=== PATIENT | male | born 1960 | race Caucasian/White ===

== ENCOUNTER → 2023-07-19 08:33 | Outpatient (REF) | payer BC, SELFPAY | LOC: HWRCS 08:33 | PROVIDERS: ATTENDING PHYSICIAN Family Medicine | DX: I77.810 Thoracic aortic ectasia (principal) | CPT/HCPCS: 93306 ==

== ENCOUNTER → 2023-12-29 10:01 | Outpatient (REF) | payer MEDICARE, SELFPAY | LOC: REG 10:01 | PROVIDERS: ATTENDING PHYSICIAN Family Medicine | DX: R06.2 Wheezing (principal) | CPT/HCPCS: 71046 ==

== ENCOUNTER → 2024-03-12 10:03 | Outpatient (REF) | payer MEDICARE, SELFPAY | LOC: RAD 10:03 | PROVIDERS: ATTENDING PHYSICIAN Internal Medicine Cardiovascular Disease; FAMILY PHYSICIAN Family Medicine | DX: R07.89 Other chest pain (principal); Z01.810 Encounter for preprocedural cardiovascular examination; Z82.49 Family history of ischemic heart disease and other diseases of the circulatory system | CPT/HCPCS: 75574; Q9967 ==

== ENCOUNTER 2024-07-08 15:26 | Emergency (ER) | payer MEDICARE, SELFPAY ==
[2024-07-08 15:31] VITALS: BP 137/96
[2024-07-08] MEDS: OMNIPAQUE 50 ML PO (15:52)
[2024-07-08 16:18] LABS: % Basophils 0.7 % (0-2); % Eosinophils 1.5 % (0-6); % Immature Granulocytes 0.2 % (0-0.5); % Lymphocytes 23.3 % (20.5-51.1); % Monocytes 8.9 % (1.7-9.3); % Neutrophils 65.4 % (42.2-75.2); Absolute Eosinophils 0.1 10^3/uL (0-0.7); Absolute Lymphocytes 1.3 10^3/uL (1.2-3.4); Absolute Monocytes 0.5 10^3/uL (0.1-0.6); Absolute Neutrophils 3.6 10^3/uL (1.4-6.5); Hematocrit 44.9 % (39.0-52.0); Hemoglobin 15.4 g/dL (13.0-18.0); Mean Corp Hgb Conc. 34.3 g/dL (33.0-37.0); Mean Corpuscular Hgb 29.8 pg (27.0-31.0); Mean Platelet Volume 9.8 fL (7.4-10.4); Nucleated Red Blood Cells % 0 % (-); Platelet Count 204 10^3/uL (130-400); Red Blood Cell Count 5.16 10^6/uL (4.70-6.10); White Blood Cell Count 5.5 10^3/uL (4.8-10.8)
[2024-07-08 16:23] LABS: ALT (SGPT) 39 U/L (0-50); AST (SGOT) 28 U/L (17-59); Albumin 4.7 g/dl (3.5-5.0); Alkaline Phosphatase 40 U/L (38-126); Blood Urea Nitrogen 20 mg/dl (9-20); Calcium 9.7 mg/dl (8.4-10.2); Carbon Dioxide 29 mmol/L (22-30); Chloride 107 mmol/L (98-107); Glucose 100 mg/dl (70-99); Potassium 4.7 mmol/L (3.5-5.1); Sodium 140 mmol/L (135-145); Total Bilirubin 0.8 mg/dl (0.2-1.3); Total Protein 7.2 g/dl (6.3-8.2); eGFR > 60.00
[2024-07-08 16:24] LABS: Lipase 105 U/L (23-300)
--- NOTE | 2024-07-08 19:12 | ED.GENMED ---
History of Present Illness
General
Chief Complaint: Swelling
Source: patient
Exam Limitations: none
Time Seen by Provider: 07/08/24 19:05
Nursing documentation reviewed up to this point in time: agreed with
History of Present Illness
History of Present Illness:
63-year-old male with past medical history as noted presents to the emergency room for evaluation of abdominal pain. Patient reports onset of symptoms Monday evening after eating and it been constant since that time. He says that initially he
thought it was some bloating related to food he ate but did not respond to Tums or Pepcid. Over the weekend he started to develop swelling/bloating in the left upper abdomen. Went to see his primary doctor today who thought it could potentially be
an incisional hernia from prior hernia repair and he was referred to the ER for evaluation. He has not had any nausea or vomiting. Denies any constipation or diarrhea, no bloody stools. Denies any urinary issues. Denies fever or chills. Denies
any other complaints. Aside from prior umbilical hernia repair he also reports prior appendectomy.
Past History
Past History
ED Past Medical History: HTN, Hypercholesterolemia and Other (Acoustic neuroma)
ED Past Surgical History: Other (Surgery for acoustic neuroma)
Social History
Personal:
Living: with family
Review of Systems
Review of Systems
All Other Systems: ROS reviewed and negative except as documented in HPI and ROS
Constitutional: Denies fever
Respiratory: Denies trouble breathing
Cardiac: Denies chest pain
ABD/GI: Reports abdominal pain; Denies nausea, vomiting, diarrhea, constipated or bloody stools
: Denies dysuria or flank pain
Musculoskeletal: Reports back pain; Denies neck pain
Neurological: Denies headache
Phy Exam
Physical Exam
Physical Exam:
General: Awake, alert, no acute distress
Head: Normocephalic, atraumatic
Eyes: Conjunctiva normal, sclera anicteric
Throat: Airway intact, handling secretions
Neck: Trachea midline, supple without meningismus
Lungs: Breathing comfortably no distress
Heart: Regular rate
Abd: Soft, non distended, tender to palpation left upper abdomen no palpable hernia
Neuro: No gross deficits
Skin: no rash or skin changes in area of concern
Extremities: Warm and well-perfused
Scores
Heart Failure Risk
Heart Failure Risk Score: Not Applicable
Heart Score for Chest Pain Patients
STEMI patient?: Not applicable
Withdrawal Assessment of Alcohol
Withdrawal Assessment Completed?: Not applicable
Course
Orders/Labs/Results
Orders:
Orders
07/08/24 15:51
Iohexol [Omnipaque] See Protocol PO NOW STA
07/08/24 16:02
Complete Blood Count/With Diff Urgent
Comprehensive Metabolic Panel Urgent
Lipase Urgent
07/08/24 18:56
CT Abd/pel W Iv And Oral Contr Urgent
Comment:
Reason For Exam: abd. pain
Iohexol [Omnipaque] See Protocol PO NOW STA
07/08/24 19:50
Urinalysis Reflex To Culture Urgent
Date Specimen was Collected: 07/08/24
Time Specimen was Collected: 19:47
Abnormal Lab Results
07/08/24
16:02
Glucose 100 H mg/dl
(70-99)
07/08/24 16:02
07/08/24 16:02
Vital Signs
Initial and Last Documented VS:
Initial Vital Signs
Temp Pulse Resp BP Pulse Ox
36.3 C 83 18 137/96 95
07/08/24 15:31 07/08/24 15:31 07/08/24 15:31 07/08/24 15:31 07/08/24 15:31
Last Documented Vital Signs
Temp Pulse Resp BP Pulse Ox
36.3 C 83 18 137/96 95
07/08/24 15:31 07/08/24 15:31 07/08/24 15:31 07/08/24 15:31 07/08/24 15:31
MDM/Problems Addressed
Differential Diagnosis Includes:
Bowel obstruction, hernia, gastritis, PUD, nephrolithiasis
MDM/Problems Addressed:
63-year-old male presents to the emergency room for evaluation of left upper abdominal pain rating to the back associated with sensation of fullness or swelling in upper abdomen. Vitals and exam as above. He had lab work in triage including CBC
and CMP which showed no clinically significant abnormalities. His lipase is normal. Will send for a CT of the abdomen pelvis. Check urinalysis. Reassess after the above.
Urinalysis negative for infection. CT no acute abnormalities. Suspect this might be bloating from GERD/gastritis. Will start on PPI advised bland diet and follow-up with PCP. Patient comfortable to this plan. All questions answered.
*Radiology
Radiology exam reviewed: radiology read reviewed
*Pulse Oximetry
Patient hypoxic: no
*Critical Care Note
Total Time (30-74mins, 75-104mins- exclusive of procedures): Not Applicable
Data Reviewed
Source: patient and spouse
ED Attending Note
-
Portions of this chart may have been created with voice recognition software.� Occasional wrong word or��sound alike� substitutions may have occurred due to the inherent limitations of voice recognition software.
Discharge Plan
Departure
Patient Disposition: Home (Routine Discharge)
Date of Disposition: 07/08/24
Time of Disposition: 21:16
Patient with high blood pressure during this ER visit?: No
Discharge Problem:
Abdominal pain
Instructions: Abdominal Pain
Prescriptions:
New
pantoprazole 40 mg tablet,delayed release (DR/EC)
40 mg PO DAILY Qty: 30 0RF
No Action
cetirizine 10 MG tablet
10 mg PO DAILY
atorvastatin 10 MG tablet
20 mg PO QPM
lisinopril 10 MG tablet
40 mg PO QPM
Metamucil Packet
1 packet PO DAILY
Probiotic
1 tab PO DAILY
krill oil
1 tab PO DAILY
pseudoephedrine HCl [Sudafed] 30 mg Tablet
60 mg PO DIRECTED PRN (Reason: sinus congestion)
oxycodone 5 mg tablet
5 - 10 mg PO Q4HPRN PRN (Reason: moderate to severe pain) Qty: 20 0RF
Referrals:
Priti Hoover DO [Family Provider] - Follow up in 5-7 days
Activity Restrictions/Additional Instructions:
Thank you for visiting the Emergency Department at [facility].
1. Please schedule a follow up appointment as directed. Call first thing tomorrow morning to make an appointment.
2. If indicated, please take your medications as instructed and indicated on discharge paperwork.
3. If any of your symptoms do not improve, or persist, or become more severe within 6-12 hours, please return to the emergency department for further care.
4. Please return to the emergency department if you develop a headache, neck pain/stiffness, fever greater than 100.4F, chest pain, shortness of breath, persistent nausea, vomiting, slurred speech, difficulty walking, numbness/tingling, weakness,
signs of infection or any other symptoms that are worrisome to you.
Please call [phone] if you have any questions.
Interventions
Interventions:
*Risk Screen - Suicide Last Done: 07/08/24 15:39
*General Assessment Last Done: 07/08/24 15:31
ED- Cardiac Assessment Last Done: 07/08/24 19:10
ED- Pulmonary Assessment Last Done: 07/08/24 19:10
ED-Skin Assessment Last Done: 07/08/24 19:27
Discharge Date and Time
Print Language: HUNGARIAN
[2024-07-08 19:57] VITALS: BP 133/82
[2024-07-08 19:59] LABS: Urine Albumin Negative (Neg - Trace); Urine Bilirubin Negative (Negative); Urine Character Clear (Clear); Urine Glucose Negative (Negative); Urine Ketone Negative (Negative); Urine Leukocyte Negative (Negative); Urine Nitrite Negative (Negative); Urine Occult Blood Negative (Negative); Urine Urobilinogen Negative (Neg - 1+)
[2024-07-08 20:00] VITALS: BP 129/85
[2024-07-08 20:03] LABS: Urine Color Straw
[2024-07-08 21:00] VITALS: BP 147/88
== END 2024-07-08 21:15 | disposition home or self-care (01) ==
LOC: EMR 15:26
PROVIDERS: Emergency Medicine; EMERGENCY PHYSICIAN Emergency Medicine; FAMILY PHYSICIAN Family Medicine
DX: R10.12 Left upper quadrant pain (principal); R14.0 Abdominal distension (gaseous); I10 Essential (primary) hypertension; E78.00 Pure hypercholesterolemia, unspecified
CPT/HCPCS: 99284; 74177; 80053; 81003; 83690; 85025; Q9967

== ENCOUNTER → 2024-07-11 15:29 | Outpatient (REF) | payer MEDICARE, SELFPAY | LOC: RAD 15:29 | PROVIDERS: ATTENDING PHYSICIAN Family Medicine | DX: R10.84 Generalized abdominal pain (principal); K59.00 Constipation, unspecified | CPT/HCPCS: 74018 ==

== ENCOUNTER 2024-12-02 06:19 | Day surgery (SDC) | payer MEDICARE, SELFPAY ==
[2024-12-02] VITALS (7 sets, daily range): BP systolic 102–120; BP diastolic 63–74; BMI 25.4
[2024-12-02] MEDS: TYLENOL 1000 MG PO (06:54)
[2024-12-02] MEDS: NORMOSOL-R/PLASMALYTE-A 1000 IV (07:05)
--- NOTE | 2024-12-02 07:06 | HP.FOC2 ---
Focused History & Physical
Chief Complaint
HPI:
Chief Complaint: Left lower quadrant incisional hernia
HPI / Indication for Planned Procedure: Patient is a 63-year-old male who has previously undergone robotic umbilical herniorrhaphy in 2022. He has subsequently noticed a bubblelike swelling of left lower quadrant over the region of an 8 mm trocar
site. Physical examination and CT imaging has confirmed the presence of a suspected left lower quadrant incisional hernia. He presents today for scheduled operative correction.
Relevant Past Medical History: Other (Hypertension, hyperlipidemia, resection of acoustic neuroma, degenerative disc disease, GERD)
Relevant Social History: Negative
Relevant Family History: Negative
Relevant Past Surgical History: Positive for (Shoulder arthroscopy, resection acoustic neuroma x 3, appendectomy, robotic umbilical herniorrhaphy, left shoulder arthroscopy)
Review of Systems
Review of Pertinent Systems: All Systems Negative
Medication
See Medication form for detailed medications: Yes
Medication List (including Herbals & OTC):
atorvastatin 10 mg tablet 20 mg PO QPM 06/11/12
lisinopril 10 mg tablet 40 mg PO QPM 06/11/12
psyllium 1 packet PO DAILY 06/21/22
pseudoephedrine HCl 30 mg tablet (Sudafed) 60 mg PO DIRECTED PRN sinus congestion 06/27/22
Super Beets 1 dose PO DAILY 11/28/24
azelastine 205.5 mcg (0.15 %) nasal spray (Astepro Allergy) 1 spray intranasal DAILY 11/28/24
indomethacin 25 mg capsule 50 mg PO BID 11/28/24
Medications Reviewed: Yes
Allergies and Reactions
Patient has Allergies: Yes
Noted Allergies and Reactions:
Allergy/AdvReac Type Severity Reaction Status Date / Time
adhesive Allergy Rash Verified 12/02/24 06:51
pollen extracts Allergy hayfever Verified 12/02/24 06:51
Pertinent Physical Exam
All Other Systems: Negative
Head/Neck: Normal
Lungs: Normal
Heart: Normal
Abdomen: Other (Left lower quadrant incisional hernia)
Extremities: Normal
Neurological: Normal
Diagnosis / Assessment
63-year-old male presenting for scheduled operative correction symptomatic left lower quadrant incisional hernia
Plan / Procedure
Open repair left lower quadrant incisional hernia with possible mesh
Anesthesia/Sedation to be done by Anesthesia Provider: Yes
--- NOTE | 2024-12-02 07:09 | W.SUR.PREOP ---
Pre-Operative Surgical Note
-
I have examined this patient prior to the performance of the scheduled procedure.
The patient's condition is unchanged from the time of the current History and
Physical and the patient is able to undergo the scheduled procedure.
--- NOTE | 2024-12-02 08:21 | W.IMMPOSTOP ---
Addendum entered and electronically signed by Sai Christianson MD 12/02/24 08:30:
#[id number]
Original Note:
Surgical Immed Post Op Note
-
Primary Surgeon: Sai Christianson MD
Assisting Surgeon: Ruthann Flores PA-c
Pre-op Diagnosis: Left lower quadrant incisional hernia
Post-op Diagnosis: Left lower quadrant incisional hernia; 1 cm
Procedure Performed: Open primary repair left lower quadrant incisional hernia
Anesthesia Type: GETA +0.25% Marcaine
Specimen / Cultures: None
Estimated Blood Loss: 6 mL
Complications: None immediate
Operative Findings: Incisional hernia at previous left lower quadrant robotic trocar site. Fascial defect 1 cm maximally. Preperitoneal fat and peritoneal lining of hernia sac reduced. Internal oblique/transversalis fascia closed with interrupted
[id number] 0 PDS. External oblique fascia closed running continuous 0 PDS. Deborah's with 3-0 Vicryl. Skin with 4-0 Monocryl.
== END 2024-12-02 09:45 | disposition home or self-care (01) ==
LOC: SDS 06:19
PROVIDERS: ATTENDING PHYSICIAN Surgery
DX: K43.2 Incisional hernia without obstruction or gangrene (principal); Z98.890 Other specified postprocedural states
CPT/HCPCS: 49591

== ENCOUNTER → 2025-01-20 07:24 | Outpatient (REF) | payer MEDICARE, SELFPAY | LOC: RAD 07:24 | PROVIDERS: ATTENDING PHYSICIAN Surgery; FAMILY PHYSICIAN Family Medicine | DX: R19.04 Left lower quadrant abdominal swelling, mass and lump (principal) | CPT/HCPCS: 76705 ==

== ENCOUNTER 2025-02-14 10:41 | Emergency (ER) | payer MEDICARE, SELFPAY ==
[2025-02-14] VITALS (9 sets, daily range): BP systolic 131–145; BP diastolic 87–104; PULSE 70–81; O2SAT 98–100
--- NOTE | 2025-02-14 12:41 | ED.GENMED ---
History of Present Illness
<Calvin Pacheco MD, Resident - Last Filed: 02/14/25 15:08>
General
Chief Complaint: Dizziness
Time Seen by Provider: 02/14/25 12:40
History of Present Illness
History of Present Illness:
64 yo M PMH HTN, HLD, R acoustic neuroma s/p resection 2013 p/w dizziness. He reports vertigo, room spinning.
First began a few days ago, with episodes lasting 1-2min max. Intermittent, triggered by movement of head to the left. No difficulty speaking or changes in vision. He reports chronic unsteadiness because of acoustic neuroma on right side acoustic
neuroma surgery c/b CSF leak, infection, requiring reconstructive surgery all in 2012. However, he reports increased unsteadiness in the vertigo-episodes. He was prompted to present to ED today because the episode this morning lasted 90 minutes.
He also reports headache on L side, now improved after excedrin. 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
denies dysarthria, denies dysphagia.
denies nausea/vomiting
denies URI symptoms, congestion, sick contacts, recent travel
no new changes in numbness, no new weakness.
He has chronic numbness in R arm (had foraminotomy for L arm numbness years ago) and L sciatica
this has never happenned before. He went to PCP, who did an initial stroke evaluation outpatient which was negative reported by patient.
he reports some palpitations yesterday evening, but no chest pain, dyspnea, abdominal pain, back pain.
no family hx of acoustic neuroma.
no cigarette smoking, occasional etoh use, no recreational drugs
Past History
<Calvin Pacheco MD, Resident - Last Filed: 02/14/25 15:08>
Past History
ED Past Medical History: HTN, Hypercholesterolemia and Other (Acoustic neuroma)
ED Past Surgical History: Other (Surgery for acoustic neuroma)
Social History
Tobacco: Non-smoker
Alcohol: Occasional
Drug: None
Personal:
Living: with family
Review of Systems
<Calvin Pacheco MD, Resident - Last Filed: 02/14/25 15:08>
Review of Systems
Constitutional: Reports no symptoms
EENT: Reports no symptoms
Respiratory: Reports no symptoms
Cardiac: Reports palpitations
ABD/GI: Reports no symptoms
: Reports no symptoms
Musculoskeletal: Reports other (chronic numbness in L sciatica, R arm)
Neurological: Reports dizzy
Phy Exam
<Calvin Pacheco MD, Resident - Last Filed: 02/14/25 15:08>
Physical Exam
Physical Exam:
VS: BP 133/99, HR 71; T 98.7; O2sat 97%
General: no acute distress
HEENT/Neuro: PERRLA, EOMI, Head impulse test did no yield corrective saccahdes on my exam, no nystagmus elicitable during my exam, test of skew negative on my exam - however, patient denies actively experiencing vertigo
sensation of trigeminal nerve distribution intact grossly, upper and lower extremities strength 5/5 bilaterally
CV: no murmurs on my exam
Pulm: CTAB
GI: + bowel sounds, no tenderness to palpation
MSK/Back: no lower extremity edema, no CVA tenderness
Course
<Calvin Pacheco MD, Resident - Last Filed: 02/14/25 15:08>
Orders/Labs/Results
Orders:
Orders
02/14/25 11:[address] [CT Head W/o Iv Contrast] Urgent
Comment:
Reason For Exam: dizziness
02/14/25 13:32
Electrocardiogram (*1) Urgent
Reason for Study: Vertigo / Dizzy
EKG- Treatment ONCE
Ot Eval And Treat Urgent
PT Consult [Pt Eval And Treat] Urgent
Treatment: Vestibular therapy consult
Activity Level: As Tolerated
02/14/25 13:55
Complete Blood Count/With Diff Urgent
Comprehensive Metabolic Panel Urgent
Abnormal Lab Results
02/14/25
13:55
WBC 4.3 L 10^3/uL
(4.8-10.8)
Absolute Lymphs (auto) 1.0 L 10^3/uL
(1.2-3.4)
Chloride 108 H mmol/L
(98-107)
02/14/25 13:55
02/14/25 13:55
Vital Signs
Initial and Last Documented VS:
Initial Vital Signs
Temp Pulse Resp BP Pulse Ox
98.7 F 71 18 144/87 99
02/14/25 10:55 02/14/25 10:55 02/14/25 10:55 02/14/25 10:55 02/14/25 10:55
Last Documented Vital Signs
Temp Pulse Resp BP Pulse Ox
98.7 F 70 22 137/99 97
02/14/25 10:55 02/14/25 14:55 02/14/25 14:55 02/14/25 13:00 02/14/25 13:32
<Alix Palacio MD - Last Filed: 02/14/25 14:36>
Orders/Labs/Results
Orders:
Orders
02/14/25 11:[address] [CT Head W/o Iv Contrast] Urgent
Comment:
Reason For Exam: dizziness
02/14/25 13:32
Electrocardiogram (*1) Urgent
Reason for Study: Vertigo / Dizzy
EKG- Treatment ONCE
Ot Eval And Treat Urgent
PT Consult [Pt Eval And Treat] Urgent
Treatment: Vestibular therapy consult
Activity Level: As Tolerated
02/14/25 13:55
Complete Blood Count/With Diff Urgent
Comprehensive Metabolic Panel Urgent
Abnormal Lab Results
02/14/25
13:55
WBC 4.3 L 10^3/uL
(4.8-10.8)
Absolute Lymphs (auto) 1.0 L 10^3/uL
(1.2-3.4)
Chloride 108 H mmol/L
(98-107)
02/14/25 13:55
02/14/25 13:55
Vital Signs
Initial and Last Documented VS:
Initial Vital Signs
Temp Pulse Resp BP Pulse Ox
98.7 F 71 18 144/87 99
02/14/25 10:55 02/14/25 10:55 02/14/25 10:55 02/14/25 10:55 02/14/25 10:55
Last Documented Vital Signs
Temp Pulse Resp BP Pulse Ox
98.7 F 70 22 137/99 97
02/14/25 10:55 02/14/25 14:55 02/14/25 14:55 02/14/25 13:00 02/14/25 13:32
<Calvin Pacheco MD, Resident - Last Filed: 02/14/25 15:08>
MDM/Problems Addressed
Differential Diagnosis Includes:
BPPV, CVA/TIA, acoustic neuroma, labyrinthitis, orthostatic, vasovagal, arrhythmia, anemia
MDM/Problems Addressed:
64 yo M PMH n/f acoustic neuroma on R side, s/p surgery c/b CSF leak, infection in 2012
P/w dizziness over past few days, intermittent, triggered by head movement. denies nausea/vomiting. never happened before. no dysphagia, no dysarthria. episodes terminate after 1-2 minutes. no other focal deficits. no new numbness beyond chronic R
arm numbness and L sciatica numbness.
exam did not show + head impulse test, nystagmus not elicited, and test of skew negative (for my exam).
altogether, presentations appears more consistent with BPPV.
CVA/TIA should be considered but symptoms are not constantly ongoing dizziness and no new focal deficits or numbness.
CT Head noncontrast showed no acute abnormality.
no infectious symptoms, points away from labyrinthitis.
a new acoustic neuroma on L side is possible, but last surveillance MRI was in and was negative per patient reports.
presyncope can be considered, orthostasis, vasovagal, arrhythmia, or anemia
Plan:
-CBC/CMP
-EKG
-PT/OT for vestibular therapy
-can offer meclizine after PT/OT consult is complete. Other medications can include benzodiazepines, antihistamines, scopolamine
Update:
EKG read was NSR with RBBB
CBC largely unremarkable
CMP largely unremarkable
PT/OT eval reports that patient is independent, steady, without loss of balance. Patient is asymptomatic during the session.
Updated patient that the most likely explanation is a benign cause of vertigo. Patient is medically stable for discharge and patient is okay with being discharged home.
<Calvin Pacheco MD, Resident - Last Filed: 02/14/25 15:08>
*Pulse Oximetry
SaO2: 99
Oxygen Mode of Delivery: Room air
Patient hypoxic: no
*Critical Care Note
Total Time (30-74mins, 75-104mins- exclusive of procedures): Not Applicable
ED Attending Note
<Calvin Pacheco MD, Resident - Last Filed: 02/14/25 15:08>
-
Portions of this chart may have been created with voice recognition software.� Occasional wrong word or��sound alike� substitutions may have occurred due to the inherent limitations of voice recognition software.
<Alix Palacio MD - Last Filed: 02/14/25 14:36>
ED Attending Note
Patient seen and examined by attending physician: Yes
I performed a history and physical exam of patient and discussed management with resident, I reviewed resident's note and agree with documented findings and plan of care.: Yes
ED Attending Note:
64-year-old male with complaints of dizziness described as spinning, began a few days ago, lasting seconds at a time, and only when turning his head to the left side. Today it lasted about 90 seconds when he turned his head to the left side which
prompted his visit here. He went to his primary care doctor first and was referred to the ER for further workup. He denies dysmetria, dysphagia, dysarthria, diplopia, chest pain, shortness of breath, numbness, tingling, focal weakness, or other
complaints. Patient's neurological exam is completely normal. No nystagmus, no photophobia, EOMI, [id number] normal, cranial nerves II through XII intact, motor 5 out of 5. Patient's gait is normal. He was referred to physical therapy here
who did an evaluation. Clinically I highly suspect a peripheral cause of his symptoms. He declines medication here.
Discharge Plan
Departure
Patient Disposition: Home (Routine Discharge)
Date of Disposition: 02/14/25
Time of Disposition: 15:03
Patient with high blood pressure during this ER visit?: Yes
Condition: Good
Discharge Problem:
Vertigo
Instructions: Vertigo (a Type of Dizziness) (DC)
Prescriptions:
No Action
atorvastatin 10 MG tablet
20 mg PO QPM
lisinopril 10 MG tablet
40 mg PO QPM
psyllium Packet
1 packet PO DAILY
pseudoephedrine HCl [Sudafed] 30 mg Tablet
60 mg PO DIRECTED PRN (Reason: sinus congestion)
indomethacin 25 mg capsule
50 mg PO BID
azelastine [Astepro Allergy] 205.5 mcg (0.15 %) [place],Non-Aerosol
1 spray INTRANASAL DAILY
Super Beets
1 dose PO DAILY
acetaminophen [Tylenol Extra Strength] 500 mg tablet
1,000 mg PO Q6HPRN PRN (Reason: mild pain) Qty: 1 0RF
polyethylene glycol 3350 [Miralax] 17 gram/dose powder
4 g PO DAILY PRN (Reason: Constipation) Qty: 119 0RF
Rx Instructions:
start a laxative such as MIRALAX on day 2 after surgery if no bowel movement yet as long as no nausea/vomiting and passing gas
oxycodone 5 mg tablet
5 mg PO Q4HPRN PRN (Reason: breakthrough/severe pain) Qty: 10 0RF
Referrals:
Priti Hoover DO [Family Provider, Family Practice]
Activity Restrictions/Additional Instructions:
You presented to the ER with vertigo. Your workup indicates that the most likely cause is a benign cause. If your symptoms worsen where they are almost constant vertigo or experience new onset focal weakness or new numbness and/or a new headache.
You should seek care or present to the ER.
Interventions
Interventions:
*General Assessment Last Done: 02/14/25 13:32
*Neglect/Abuse Screening Last Done: 02/14/25 10:55
*ED COVID-19 Vaccine History Last Done: 02/14/25 13:32
*ED Influenza Vaccine History Last Done: 02/14/25 13:32
[facility] Risk Assessment Tool Last Done: 02/14/25 13:32
*Risk Screen - Suicide (C-SSRS) Last Done: 02/14/25 10:55
ED- Neurological Assessment Last Done: 02/14/25 13:33
Discharge Date and Time
Print Language: [id number]
[2025-02-14 14:07] LABS: Hematocrit 40.8 % (39.0-52.0); Hemoglobin 14.2 g/dL (13.0-18.0); Mean Corp Hgb Conc. 34.8 g/dL (33.0-37.0); Mean Corpuscular Volume 82.9 fL (80.0-94.0); Nucleated Red Blood Cells % 0 % (-); Platelet Count 187 10^3/uL (130-400); Red Cell Dist. Width 13.3 % (11.5-14.5)
[2025-02-14 14:23] LABS: ALT (SGPT) 32 U/L (0-50); AST (SGOT) 26 U/L (17-59); Albumin 4.4 g/dl (3.5-5.0); Alkaline Phosphatase 58 U/L (38-126); Blood Urea Nitrogen 16 mg/dl (9-20); Calcium 9.7 mg/dl (8.4-10.2); Carbon Dioxide 25 mmol/L (22-30); Chloride 108 mmol/L (98-107); Glucose 98 mg/dl (70-99); Potassium 4.2 mmol/L (3.5-5.1); Sodium 137 mmol/L (135-145); Total Protein 6.9 g/dl (6.3-8.2); eGFR > 60.00
== END 2025-02-14 16:00 | disposition home or self-care (01) ==
LOC: EMR 10:41
PROVIDERS: EMERGENCY PHYSICIAN Emergency Medicine; FAMILY PHYSICIAN Family Medicine
DX: R42 Dizziness and giddiness (principal); I45.2 Bifascicular block; I10 Essential (primary) hypertension; E78.00 Pure hypercholesterolemia, unspecified; H91.92 Unspecified hearing loss, left ear; M54.32 Sciatica, left side; Z86.018 Personal history of other benign neoplasm
CPT/HCPCS: 99284; 70450; 80053; 85025; 93005